=== PATIENT | female | born 1985 | race Caucasian/White ===

== ENCOUNTER 2023-04-23 08:59 | Emergency (ER) | payer SELFPAY ==
[2023-04-23] MEDS ORDERED: Bupivacaine 0.5% 10 ML SDV INJECT ONE (09:45)
[2023-04-23] MEDS ORDERED: Lidocaine 1% 5 ML VIAL INJECT ONE (09:45)
== END 2023-04-23 10:23 | disposition home or self-care (01) ==
LOC: MW.ED 08:59
DX: K02.9 Dental caries, unspecified (principal); Z91.048 Other nonmedicinal substance allergy status
CPT/HCPCS: 64400; 99282; J0665; 99283; J3490

== ENCOUNTER 2025-01-03 18:02 | Emergency (ER) | payer SELFPAY ==
[2025-01-03 18:46] LABS: APPEARANCE,URINE CLEAR; GLUCOSE,URINE NEGATIVE (NEGATIVE); OCCULT BLOOD,URINE NEGATIVE (NEGATIVE)
[2025-01-03 18:57] LABS: EPITHELIAL CELLS,URINE FEW (NONE-FEW)
== END 2025-01-03 19:17 | disposition home or self-care (01) ==
LOC: MW.ED 18:02
DX: N39.0 Urinary tract infection, site not specified (principal); Z91.013 Allergy to seafood
CPT/HCPCS: 81001; 81025; 99283; 99284